=== PATIENT | female | born 1955 | race Caucasian/White ===

== ENCOUNTER 2017-10-23 10:14 | Inpatient (IN) | payer BC, OTHER ==
[~2017-10-23] VITALS: Ht 154.9 cm; Wt 131.5 kg
[~2017-10-23 10:14] MED LIST: CIPROFLOXACIN500 M1 PO; FLAGYL 250 MG250 MG PO; FUROSEMIDE 40 M40 M1 PO; HUMULIN N100 UNIT/1; HUMULIN N100 UNIT/1 SQ; K-DUR 20 MEQ T20 MEQ PO; ZEGERID 20 MG1 EACH PO; ZOCOR40 MG PO; insulin
[2017-10-23] MEDS ORDERED: OXYCODONE HCL 55 MG PO (12:06)
[2017-10-23 14:21] LABS: ABSOLUTE NEUTROPHILS 3.8 thou/uL (1.4-8.2); BASOPHILS 0.6 % (0.0-2.0); EOSINOPHILS 1.7 % (0.0-3.0); HEMATOCRIT 37.4 % (37.0-47.0); HEMOGLOBIN 12.6 gm/dL (12.0-15.0); LYMPHOCYTES 22.8 % (24.0-44.0); MCH 28.5 pg (26.0-34.0); MCHC 33.5 g/dL (28.0-37.0); MONOCYTES 5.8 % (1.0-8.0); PLATELET COUNT 163 thou/uL (150-400); POLYS 69.1 % (36.0-66.0); RBC 4.41 mil/uL (4.20-5.00); WBC 5.5 thou/uL (4.0-11.0)
[2017-10-23 14:30] LABS: CREATININE 0.7 mg/dL (0.6-1.0); POTASSIUM 3.9 mmol/L (3.5-5.1)
[2017-10-23 14:45] LABS: URINE BILIRUBIN NEGATIVE (Negative); URINE BLOOD NEGATIVE (Negative); URINE CLARITY CLEAR; URINE COLOR YELLOW; URINE GLUCOSE-RANDOM* TRACE (Negative); URINE KETONES NEGATIVE (Negative); URINE LEUKOCYTES-REFLEX NEGATIVE (Negative); URINE NITRITE-REFLEX NEGATIVE (Negative); URINE PROTEIN (DIPSTICK) NEGATIVE (Negative); URINE SPECIFIC GRAVITY 1.015 (1.005-1.035); URINE UROBILINOGEN 0.2 E.U./dl (0.2-1.0)
[2017-10-23] MEDS ORDERED: TYLENOL EXTRA500 MG PO (15:48)
[2017-10-23] MEDS ORDERED: IBUPROFEN 800800 M1 PO (15:48)
[2017-10-23] MEDS ORDERED: VITAMIN D3400 UNIT PO (15:49)
[2017-10-23] MEDS ORDERED: UNICOMPLEX M TA1 TA1 PO (15:49)
[2017-10-23] MEDS ORDERED: LANTUS SOL100 UNIT/1 SUBQ (15:52)
[2017-10-23] MEDS ORDERED: HUMULIN N100 UNIT/1 SUBQ (15:54)
[2017-10-23] MEDS ORDERED: OXYCODONE HCL10 MG PO (15:57)
[2017-10-23 17:14] VITALS: BP 189/86
[2017-10-23 20:49] VITALS: BP 198/98
[2017-10-24 03:14] LABS: GLYCOHEMOGLOBIN (HGB A1C) 8.6 % (4.8-5.6)
[2017-10-24 06:49] VITALS: BP 198/97
[2017-10-24 07:37] VITALS: BP 189/79
[2017-10-24 15:30] VITALS: BP 125/79
[2017-10-24] MEDS ORDERED: KEFLEX500 M1 PO (18:23)
[2017-10-24] MEDS ORDERED: ZANAFLEX4 MG PO (18:28)
[2017-10-24] MEDS ORDERED: ENOXAPARIN40 MG/0.1 SUBQ (18:29)
[2017-10-24] MEDS ORDERED: ATORVASTATIN CA10 MG PO (18:30)
[2017-10-24] MEDS ORDERED: AMLODIPINE BESY10 MG PO (18:32)
[2017-10-24] MEDS ORDERED: LISINOPRIL10 MG PO (18:33)
[2017-10-24] MEDS ORDERED: ADULT LOW DOSE81 MG PO (18:34)
[2017-10-24] MEDS ORDERED: DEXTROSE 500.5 GM/M1 IV PUSH (18:35)
[2017-10-24] MEDS ORDERED: GLUCOSE4 GM PO (18:36)
[2017-10-24] MEDS ORDERED: GLUTOSE GEL 1515 G1 PO (18:36)
[2017-10-24] MEDS ORDERED: NOVOLOG100 UNIT/1 SUBQ (18:38)
[2017-10-24] MEDS ORDERED: GLUCAGON HCL1 MG IM (18:39)
[2017-10-24] MEDS ORDERED: OXYCODONE HCL10 MG PO (18:40)
[2017-10-24 20:00] VITALS: BP 125/79
== END 2017-10-24 20:37 | disposition home or self-care (01) | DRG 552 ==
LOC: 4E 10:14 → ADMC 11:06 → 4E 11:06
PROVIDERS: Internal Medicine
DX: M48.061 Spinal stenosis, lumbar region without neurogenic claudication (principal); Z68.43 Body mass index [BMI] 50.0-59.9, adult; E11.9 Type 2 diabetes mellitus without complications; E66.01 Morbid (severe) obesity due to excess calories; I10 Essential (primary) hypertension; E78.5 Hyperlipidemia, unspecified; E78.00 Pure hypercholesterolemia, unspecified; N61.0 Mastitis without abscess; I87.2 Venous insufficiency (chronic) (peripheral); R29.6 Repeated falls; M51.16 Intervertebral disc disorders with radiculopathy, lumbar region; Z90.89 Acquired absence of other organs; Z90.710 Acquired absence of both cervix and uterus; Z90.49 Acquired absence of other specified parts of digestive tract; Z83.3 Family history of diabetes mellitus; Z82.49 Family history of ischemic heart disease and other diseases of the circulatory system
CPT/HCPCS: 10783

== ENCOUNTER 2018-03-09 19:58 | Emergency (ER) | payer BC, OTHER ==
[~2018-03-09 19:58] MED LIST changes: +ADULT LOW DOSE81 MG PO; +AMLODIPINE BESY10 MG PO; +ATORVASTATIN CA10 MG PO; +DEXTROSE 500.5 GM/M1 IV PUSH; +ENOXAPARIN40 MG/0.1 SUBQ; +GLUCAGON HCL1 MG IM; +GLUCOSE4 GM PO; +GLUTOSE GEL 1515 G1 PO; +HUMULIN N100 UNIT/1 SUBQ; +IBUPROFEN 800800 M1 PO; +KEFLEX500 M1 PO; +LANTUS SOL100 UNIT/1 SUBQ; +LISINOPRIL10 MG PO; +NOVOLOG100 UNIT/1 SUBQ; +OXYCODONE HCL 55 MG PO; +OXYCODONE HCL10 MG PO; +TYLENOL EXTRA500 MG PO; +UNICOMPLEX M TA1 TA1 PO; +VITAMIN D3400 UNIT PO; +ZANAFLEX4 MG PO
== END 2018-03-09 20:37 ==
LOC: ER 19:58
DX: Z53.21 Procedure and treatment not carried out due to patient leaving prior to being seen by health care provider (principal)

== ENCOUNTER 2018-03-13 18:53 | Inpatient (IN) | payer BC, OTHER ==
[~2018-03-13] VITALS: Ht 157.5 cm; Wt 128.9 kg
--- NOTE | ~2018-03-13 | EKG ---
[place] [address] [address] [facility] [place] [address] ELECTROCARDIOGRAM REPORT Name: DONOVAN GODWIN Room #: 423-1 ADM IN M.R.#: [id number] Admission: 03/13/18 Attend Phys: Dilip Mcwilliams MD Discharge: Date of : 57 Report #: [id number] THIS REPORT FOR: //name// [facility] ED Test Date: 2018-03-13 Test Time: 19:20:16 Pat Name: DONOVAN GODWIN Department: Room: Gender: F [employer]: MZOOK : 1955 Requested By: Libia Poole Order Number: [id number] MD: Mikie Puri Measurements Intervals [place] Rate: 97 P: 52 MI: 184 QRS: -55 QRSD: 161 T: 20 QT: 407 QTc: 517 Interpretive Statements Sinus rhythm RBBB and LAFB Baseline wander in lead(s) V3 Compared to ECG 01/15/2010 04:27:51 Left anterior fascicular block now present Right bundle-branch block now present Electronically Signed On 03-14-2018 11:49:09 CDT by Mikie Puri [email or web address] <ELECTRONICALLY SIGNED> By: Mikie Puri MD, [facility] 03/14/18 1149 19 19 Mikie Puri MD, [facility] /EPI
[2018-03-13 18:59] VITALS: BP 244/125
[2018-03-13 19:29] LABS: ABSOLUTE NEUTROPHILS 5.8 thou/uL (1.4-8.2); BASOPHILS 0.5 % (0.0-2.0); EOSINOPHILS 0.9 % (0.0-3.0); HEMATOCRIT 45.6 % (37.0-47.0); HEMOGLOBIN 15.1 gm/dL (12.0-15.0); LYMPHOCYTES 18.5 % (24.0-44.0); MCH 28.6 pg (26.0-34.0); MCHC 33.2 g/dL (28.0-37.0); MCV 86.2 fL (80.0-100.0); MONOCYTES 5.6 % (1.0-8.0); PLATELET COUNT 228 thou/uL (150-400); POLYS 74.5 % (36.0-66.0); RBC 5.29 mil/uL (4.20-5.00); RDW 14.4 % (10.5-14.5); WBC 7.8 thou/uL (4.0-11.0)
[2018-03-13 19:35] LABS: ANION GAP 12 mmol/L (7-16); BUN 12 mg/dL (7-18); CALCIUM 10.1 mg/dL (8.5-10.1); CHLORIDE 99 mmol/L (98-107); CO2 24 mmol/L (21-32); CREATININE 0.8 mg/dL (0.6-1.0); GLUCOSE 242 mg/dL (74-106); POTASSIUM 3.9 mmol/L (3.5-5.1); SODIUM 135 mmol/L (136-145)
[2018-03-13 19:44] LABS: ALBUMIN 4.1 g/dL (3.4-5.0); LIPASE 66 U/L (73-393); SGOT 37 U/L (15-37); SGPT 48 U/L (30-65); TOTAL BILIRUBIN 0.8 mg/dL (<0.1-1.0); TOTAL PROTEIN 8.4 g/dL (6.4-8.2); TROPONIN-I <0.06 ng/mL (<0.06)
[2018-03-13] MEDS ORDERED: HUMALOG KW200 UNIT/1 SUBQ (20:17)
[2018-03-13 21:03] LABS: URINE BILIRUBIN NEGATIVE (Negative); URINE BLOOD 3+ (Negative); URINE CLARITY CLEAR; URINE COLOR YELLOW; URINE GLUCOSE-RANDOM* 2+ (Negative); URINE KETONES 2+ (Negative); URINE LEUKOCYTES-REFLEX NEGATIVE (Negative); URINE NITRITE-REFLEX NEGATIVE (Negative); URINE PROTEIN (DIPSTICK) NEGATIVE (Negative); URINE UROBILINOGEN 0.2 E.U./dl (0.2-1.0)
[2018-03-13 21:12] LABS: BACTERIA-REFLEX None Seen /HPF (None Seen); CASTS None Seen /LPF (None Seen); CRYSTALS None Seen /LPF (None Seen); SQUAMOUS 0-3 Few /LPF (0-3); URINE WBC-REFLEX 0-5 Rare /HPF (0-5)
[2018-03-13 21:20] VITALS: BP 165/73
[2018-03-13 21:52] VITALS: BP 157/81
[2018-03-14 05:36] VITALS: BP 153/80
[2018-03-14 09:12] VITALS: BP 163/66
[2018-03-14] MEDS ORDERED: FLOMAX0.4 MG PO (15:08)
[2018-03-14] MEDS ORDERED: CELEBREX 200 M200 M1 PO (15:08)
[2018-03-14] MEDS ORDERED: ALEVE220 MG PO (15:08)
[2018-03-14 15:27] VITALS: BP 163/66
[2018-03-14 15:28] VITALS: BP 163/66
== END 2018-03-14 15:50 | disposition home or self-care (01) | DRG 694 ==
LOC: ER 18:53 → 4E 20:41 → EROBS 20:41 → 4E 21:12
PROVIDERS: Nurse Practitioner Family
DX: N13.2 Hydronephrosis with renal and ureteral calculous obstruction (principal); Z68.43 Body mass index [BMI] 50.0-59.9, adult; I16.0 Hypertensive urgency; E11.9 Type 2 diabetes mellitus without complications; E66.01 Morbid (severe) obesity due to excess calories; I10 Essential (primary) hypertension; E78.5 Hyperlipidemia, unspecified; M54.30 Sciatica, unspecified side; Z90.49 Acquired absence of other specified parts of digestive tract; Z91.018 Allergy to other foods; Z83.3 Family history of diabetes mellitus; Z82.49 Family history of ischemic heart disease and other diseases of the circulatory system; Z79.4 Long term (current) use of insulin
CPT/HCPCS: 10183

== ENCOUNTER 2018-04-13 10:43 | Emergency (ER) | payer BC, OTHER ==
[~2018-04-13] VITALS: Ht 157.5 cm; Wt 129.3 kg
[~2018-04-13 10:43] MED LIST changes: +ALEVE220 MG PO; +CELEBREX 200 M200 M1 PO; +FLOMAX0.4 MG PO; +HUMALOG KW200 UNIT/1 SUBQ
[2018-04-13 11:06] LABS: URINE BILIRUBIN NEGATIVE (Negative); URINE BLOOD 3+ (Negative); URINE CLARITY CLOUDY; URINE COLOR YELLOW; URINE GLUCOSE-RANDOM* 3+ (Negative); URINE KETONES NEGATIVE (Negative); URINE LEUKOCYTES-REFLEX NEGATIVE (Negative); URINE NITRITE-REFLEX NEGATIVE (Negative); URINE PROTEIN (DIPSTICK) NEGATIVE (Negative); URINE SPECIFIC GRAVITY 1.025 (1.005-1.035); URINE UROBILINOGEN 0.2 E.U./dl (0.2-1.0)
[2018-04-13 11:10] LABS: ABSOLUTE NEUTROPHILS 4.2 thou/uL (1.4-8.2); BASOPHILS 0.9 % (0.0-2.0); EOSINOPHILS 1.8 % (0.0-3.0); HEMOGLOBIN 14.4 gm/dL (12.0-15.0); LYMPHOCYTES 27.1 % (24.0-44.0); MCH 28.4 pg (26.0-34.0); MCHC 33.4 g/dL (28.0-37.0); MONOCYTES 7.9 % (1.0-8.0); PLATELET COUNT 182 thou/uL (150-400); POLYS 62.3 % (36.0-66.0); RBC 5.06 mil/uL (4.20-5.00); RDW 14.5 % (10.5-14.5); WBC 6.7 thou/uL (4.0-11.0)
[2018-04-13 11:31] LABS: SQUAMOUS >10 Many /LPF (0-3)
[2018-04-13 11:32] LABS: CASTS None Seen /LPF (None Seen); CRYSTALS None Seen /LPF (None Seen)
[2018-04-13 11:33] LABS: URINE RBC >20 Many /HPF (0-2); URINE WBC-REFLEX 0-5 Rare /HPF (0-5)
[2018-04-13 11:43] LABS: CALCIUM 8.9 mg/dL (8.5-10.1); CREATININE 0.7 mg/dL (0.6-1.0); POTASSIUM 3.8 mmol/L (3.5-5.1)
[2018-04-13 11:49] LABS: ALBUMIN 3.7 g/dL (3.4-5.0); TOTAL BILIRUBIN 0.5 mg/dL (<0.1-1.0); TOTAL PROTEIN 7.4 g/dL (6.4-8.2)
[2018-04-13] MEDS ORDERED: PHENAZOPYRIDIN200 M2 PO (13:55)
== END 2018-04-13 14:10 | disposition home or self-care (01) ==
LOC: ER 10:43
PROVIDERS: Physician Assistant
DX: R31.9 Hematuria, unspecified (principal); R10.30 Lower abdominal pain, unspecified; E11.9 Type 2 diabetes mellitus without complications; I10 Essential (primary) hypertension; E66.01 Morbid (severe) obesity due to excess calories; Z68.43 Body mass index [BMI] 50.0-59.9, adult; Z87.442 Personal history of urinary calculi; Z88.8 Allergy status to other drugs, medicaments and biological substances; Z91.018 Allergy to other foods; Z90.49 Acquired absence of other specified parts of digestive tract; Z90.89 Acquired absence of other organs; Z90.710 Acquired absence of both cervix and uterus; Z79.4 Long term (current) use of insulin

== ENCOUNTER 2019-08-25 21:43 | Emergency (ER) | payer OTHER ==
[~2019-08-25] VITALS: Ht 157.5 cm; Wt 131.5 kg
[~2019-08-25 21:43] MED LIST changes: +PHENAZOPYRIDIN200 M2 PO
[2019-08-25 23:12] LABS: ABSOLUTE NEUTROPHILS 7.6 thou/uL (1.4-8.2); BASOPHILS 0.8 % (0.0-2.0); EOSINOPHILS 0.3 % (0.0-3.0); HEMATOCRIT 44.3 % (37.0-47.0); HEMOGLOBIN 14.6 gm/dL (12.0-15.0); LYMPHOCYTES 12.6 % (24.0-44.0); MCH 28.4 pg (26.0-34.0); MCV 85.9 fL (80.0-100.0); MONOCYTES 5.1 % (1.0-8.0); PLATELET COUNT 177 thou/uL (150-400); POLYS 81.2 % (36.0-66.0); RBC 5.16 mil/uL (4.20-5.00); WBC 9.3 thou/uL (4.0-11.0)
[2019-08-25 23:20] LABS: CALCIUM 9.7 mg/dL (8.5-10.1); POTASSIUM 4.5 mmol/L (3.5-5.1)
[2019-08-26 01:08] LABS: URINE BILIRUBIN NEGATIVE (Negative); URINE BLOOD 3+ (Negative); URINE CLARITY SL CLOUDY; URINE COLOR YELLOW; URINE GLUCOSE-RANDOM* TRACE (Negative); URINE KETONES NEGATIVE (Negative); URINE NITRITE-REFLEX NEGATIVE (Negative); URINE PROTEIN (DIPSTICK) TRACE (Negative); URINE SPECIFIC GRAVITY <= 1.005 (1.005-1.035); URINE UROBILINOGEN 0.2 E.U./dl (0.2-1.0)
[2019-08-26 01:10] LABS: URINE LEUKOCYTES-REFLEX 2+ (Negative)
[2019-08-26 01:34] LABS: SQUAMOUS 0-3 Few /LPF (0-3)
[2019-08-26 01:35] LABS: CASTS None Seen /LPF (None Seen); CRYSTALS None Seen /LPF (None Seen); MUCUS 0-3 Light strn/LPF (None Seen); URINE WBC-REFLEX >25 Many /HPF (0-5); WBC CLUMPS Moderate (None Seen)
[2019-08-26] MEDS ORDERED: KEFLEX500 M1 PO (02:46)
[2019-08-26 03:10] VITALS: BP 150/61
== END 2019-08-26 03:11 | disposition home or self-care (01) ==
LOC: ER 21:43
PROVIDERS: Emergency Medicine
DX: N39.0 Urinary tract infection, site not specified (principal); E11.9 Type 2 diabetes mellitus without complications; E66.01 Morbid (severe) obesity due to excess calories; I10 Essential (primary) hypertension; Z88.8 Allergy status to other drugs, medicaments and biological substances; Z91.018 Allergy to other foods; Z79.4 Long term (current) use of insulin; Z79.899 Other long term (current) drug therapy; Z87.442 Personal history of urinary calculi

== ENCOUNTER 2020-08-22 18:14 | Emergency (ER) | payer OTHER ==
[~2020-08-22] VITALS: Ht 157.5 cm; Wt 127.0 kg
[2020-08-22] MEDS ORDERED: PROTONIX40 M2 PO (18:21)
[2020-08-22] MEDS ORDERED: BACTRIM DS TAB1 EACH PO (19:22)
[2020-08-22] MEDS ORDERED: KEFLEX500 M1 PO (19:22)
[2020-08-22 19:31] VITALS: BP 135/71
== END 2020-08-22 19:32 | disposition home or self-care (01) ==
LOC: ER 18:14
DX: L02.11 Cutaneous abscess of neck (principal); E11.9 Type 2 diabetes mellitus without complications; I10 Essential (primary) hypertension; Z90.49 Acquired absence of other specified parts of digestive tract; Z90.710 Acquired absence of both cervix and uterus; Z79.899 Other long term (current) drug therapy; Z79.4 Long term (current) use of insulin; Z91.018 Allergy to other foods; Z88.8 Allergy status to other drugs, medicaments and biological substances

== ENCOUNTER 2021-02-03 19:51 | Emergency (ER) | payer OTHER ==
[~2021-02-03] VITALS: Ht 157.5 cm; Wt 124.3 kg
[~2021-02-03 19:51] MED LIST changes: +BACTRIM DS TAB1 EACH PO; +PROTONIX40 M2 PO
[2021-02-03] MEDS ORDERED: ZINC10 MG PO (20:04)
[2021-02-03] MEDS ORDERED: VITAMIN D31250 MCG PO (20:05)
[2021-02-03] MEDS ORDERED: FIBERCON625 M1 PO (20:06)
[2021-02-03] MEDS ORDERED: [UNRECOGNIZED DRUG - OTHER] PO (20:48)
[2021-02-03 20:55] LABS: HEMATOCRIT 41.7 % (37.0-47.0); HEMOGLOBIN 13.8 gm/dL (12.0-15.0); MCH 28.2 pg (26.0-34.0); MCHC 33.2 g/dL (28.0-37.0); MCV 84.9 fL (80.0-100.0); RBC 4.91 mil/uL (4.20-5.00); RDW 14.3 % (10.5-14.5); WBC 3.1 thou/uL (4.0-11.0)
[2021-02-03 21:03] LABS: CALCIUM 8.3 mg/dL (8.5-10.1); CREATININE 0.8 mg/dL (0.6-1.0); POTASSIUM 3.7 mmol/L (3.5-5.1)
[2021-02-03] MEDS ORDERED: ZOFRAN ODT4 MG PO (21:08)
[2021-02-03 21:32] VITALS: BP 185/79
== END 2021-02-03 22:02 | disposition home or self-care (01) ==
LOC: ER 19:51
PROVIDERS: Emergency Medicine
DX: U07.1 COVID-19 (principal); E11.9 Type 2 diabetes mellitus without complications; E66.01 Morbid (severe) obesity due to excess calories; I10 Essential (primary) hypertension; Z68.43 Body mass index [BMI] 50.0-59.9, adult; Z90.49 Acquired absence of other specified parts of digestive tract; Z90.711 Acquired absence of uterus with remaining cervical stump; Z87.442 Personal history of urinary calculi; Z79.899 Other long term (current) drug therapy; Z79.4 Long term (current) use of insulin; Z88.8 Allergy status to other drugs, medicaments and biological substances; Z91.018 Allergy to other foods